=== PATIENT | female | born 1955 | race Caucasian/White ===

== ENCOUNTER → 2018-04-28 11:22 | Outpatient (CLI) | payer OTHER, SELFPAY ==
[2018-04-28 12:37] LABS: Add Manual Diff / Slide Review NO; Basophils Percent Auto 0.5 % (0-2); Eosinophils Percent Auto 1.4 % (2-4); Hemoglobin 16.3 g/dL (12.0-16.0); Lymphocytes Percent Auto 29.9 % (25-40); Mean Corpuscular HGB Conc 35.5 % (30-36); Mean Corpuscular Volume 87.3 fL (80-100); Monocytes Percent Auto 9.8 % (3-14); Neutrophils Absolute Auto 4600 /uL (3000-5900); Neutrophils Percent Auto 58.4 % (50-75); Platelet Count 221 X10^3/uL (150-400); Red Blood Cell Count 5.27 X10^6/uL (4.0-5.2); Red Cell Distribution Width 12.3 % (11.6-14.8); White Blood Cell Count 7.9 X10^3/uL (4.5-11.0)
[2018-04-28 12:58] LABS: Erythrocyte Sedimentation Rate 5 MM/HR (0-20)
[2018-04-28 13:18] LABS: Alanine Aminotransferase 28 IU/L (9-52); Albumin 4.6 g/dL (3.5-5.0); Albumin Globulin Ratio 1.5 (1.0-2.8); Alkaline Phosphatase 68 U/L (38-126); Aspartate Aminotransferase 28 IU/L (14-36); BUN Creatinine Ratio 28.6 (6-22); Bilirubin Total 0.5 mg/dL (0.2-1.3); Blood Urea Nitrogen 20 mg/dL (7-17); C-Reactive Protein Quant 0.5 mg/dL (<1.0); Calcium 9.9 mg/dL (8.4-10.2); Carbon Dioxide 28 mmol/L (22-32); Chloride 101 mmol/L (98-107); Estimated Glomerular Filt Rate > 60.0 mL/min (>60); Globulin 3.1 g/dL (1.7-4.1); Glucose 75 mg/dL (80-110); HEMOLYSIS < 15 (0-50); Potassium 4.1 mmol/L (3.4-5.1); Sodium 142 mmol/L (137-145); Total Protein 7.7 g/dL (6.3-8.2)
[2018-04-28 13:25] LABS: Rheumatoid Factor < 8.6 IU/mL (<12.0)
[2018-04-30 12:13] LABS: CCP Antibody (IgG) < 16 Units (< 20)
[2018-05-03 08:23] LABS: ANA Pattern >=1:1280 titer; ANA Screen POSITIVE (Negative); ANA Titer HOMOGENEOUS; DNA Antibody Crithidia IFA NEGATIVE (Negative); Rheumatoid Factor <14 IU/mL; Sjogren Antiboday SS-A <1.0 NEG AI (<1.0 NEGATIVE); Sjogren Antiboday SS-B <1.0 NEG AI (<1.0 NEGATIVE); Sm Antibody <1.0 NEG AI (<1.0 NEGATIVE); Sm/RNP Antibody <1.0 NEG AI (<1.0 NEGATIVE)
== END ==
PROVIDERS: PCP Family Medicine; Visit Provider Family Medicine
DX: M79.1 Myalgia (principal); I10 Essential (primary) hypertension
CPT/HCPCS: 36415; 80053; 83516; 85025; 85651; 86038; 86140; 86430

== ENCOUNTER → 2018-05-03 14:48 | Outpatient (CLI) | payer OTHER, SELFPAY | PROVIDERS: PCP Family Medicine; Visit Provider Family Medicine | DX: Z78.0 Asymptomatic menopausal state (principal); Z82.62 Family history of osteoporosis | CPT/HCPCS: 77080 ==

== ENCOUNTER → 2018-11-18 14:06 | Outpatient (CLI) | payer OTHER, SELFPAY | PROVIDERS: PCP Family Medicine; Visit Provider Surgery | DX: L02.411 Cutaneous abscess of right axilla (principal) | CPT/HCPCS: 87070; 87077; 87186; 87205 ==

== ENCOUNTER → 2018-11-29 15:25 | Outpatient (CLI) | payer OTHER, SELFPAY ==
[2018-11-29 17:20] LABS: Add Manual Diff / Slide Review NO; Basophils Absolute Auto 0 /uL (0-100); Basophils Percent Auto 0.5 % (0-2); Eosinophils Absolute Auto 200 /uL (0-450); Eosinophils Percent Auto 2.1 % (2-4); Hematocrit 45.3 % (36-46); Hemoglobin 15.8 g/dL (12.0-16.0); Lymphocytes Absolute Auto 2700 /uL (1100-4500); Lymphocytes Percent Auto 31.5 % (25-40); Mean Corpuscular HGB Conc 34.8 % (30-36); Mean Corpuscular Hemoglobin 30.4 PG (26-34); Mean Corpuscular Volume 87.5 fL (80-100); Monocytes Absolute Auto 700 /uL (0-900); Monocytes Percent Auto 8.3 % (3-14); Neutrophils Absolute Auto 5000 /uL (1500-7000); Neutrophils Percent Auto 57.6 % (50-75); Platelet Count 223 X10^3/uL (150-400); Red Blood Cell Count 5.17 X10^6/uL (4.0-5.2); Red Cell Distribution Width 12.6 % (11.6-14.8); White Blood Cell Count 8.7 X10^3/uL (4.5-11.0)
[2018-11-29 20:36] LABS: Alanine Aminotransferase 25 IU/L (9-52); Albumin 4.3 g/dL (3.5-5.0); Albumin Globulin Ratio 1.4 (1.0-2.8); Alkaline Phosphatase 77 U/L (38-126); Aspartate Aminotransferase 23 IU/L (14-36); BUN Creatinine Ratio 22.9 (6-22); Bilirubin Total 0.1 mg/dL (0.2-1.3); Blood Urea Nitrogen 16 mg/dL (7-17); Calcium 9.5 mg/dL (8.4-10.2); Carbon Dioxide 26 mmol/L (22-32); Chloride 101 mmol/L (98-107); Cholesterol 184 mg/dL (140-199); Estimated Glomerular Filt Rate > 60.0 mL/min (>60); Glucose 94 mg/dL (80-110); HDL Cholesterol 27 mg/dL (40-60); HEMOLYSIS < 15 (0-50); LDL Cholesterol Calculated 97 mg/dL (<100); Potassium 4.3 mmol/L (3.4-5.1); Sodium 137 mmol/L (137-145); Total Protein 7.3 g/dL (6.3-8.2); Triglycerides 301 mg/dL (35-150)
== END ==
PROVIDERS: PCP Family Medicine; Visit Provider Family Medicine
DX: I10 Essential (primary) hypertension (principal)
CPT/HCPCS: 36415; 80053; 80061; 85025

== ENCOUNTER → 2019-02-24 15:13 | Outpatient (CLI) | payer OTHER, SELFPAY ==
--- NOTE | 2019-03-03 16:27 | PM.PFT.1 ---
Pulmonary Function Test Referral & Results Date Patient Seen: 02/24/19 Requesting provider: Nica Wiggins Results: The spirometry demonstrates an FVC of 2.79 L which is 96% of predicted. The FEV1 was measured at 2.20 L which is 98% of predicted. The FEV1/FVC ratio was 79 which is 100 to% of predicted. Following the administration of bronchodilator there was no appreciable change. Lung volumes show an SVC of 2.76 L which is 100% of predicted. The diffusing capacity was measured at 24.25 which is 112% of predicted. The maximum voluntary ventilation was normal Interpretation: This study demonstrates normal pulmonary function
== END ==
PROVIDERS: PCP Family Medicine; Visit Provider Family Medicine
DX: R06.02 Shortness of breath (principal)
CPT/HCPCS: 94060; 94726; 94729

== ENCOUNTER → 2019-07-10 09:58 | Outpatient (CLI) | payer OTHER, SELFPAY ==
--- NOTE | 2019-07-10 10:01 | DI.US.S_ITS ---
PROCEDURE: US ABDOMEN LIMITED INDICATIONS: Hepatic Mass TECHNIQUE: Real-time focused scanning was performed of the abdomen, with image documentation. COMPARISON: None. FINDINGS: Liver is normal appearance and no hepatic mass is seen sonographically. IMPRESSION: No hepatic mass seen sonographically. Dictated by: Jed GAFFNEY Interpreted: Gaurav Maxwell MD on 07/10/2019 at 13:53 Approved by: Gaurav Maxwell M.D. on 07/11/2019 at 9:11
== END ==
PROVIDERS: PCP Family Medicine; Visit Provider Family Medicine
DX: R16.0 Hepatomegaly, not elsewhere classified (principal)
CPT/HCPCS: 76705

== ENCOUNTER → 2019-11-22 14:38 | Outpatient (CLI) | payer OTHER, SELFPAY ==
[2019-11-22 15:55] LABS: Add Manual Diff / Slide Review NO; Alanine Aminotransferase 25 IU/L (<35); Albumin 4.4 g/dL (3.5-5.0); Albumin Globulin Ratio 1.3 (1.0-2.8); Alkaline Phosphatase 65 U/L (38-126); Aspartate Aminotransferase 30 IU/L (14-36); BUN Creatinine Ratio 26.1 (6-22); Basophils Absolute Auto 0 /uL (0-100); Basophils Percent Auto 0.6 % (0-2); Bilirubin Total 0.3 mg/dL (0.2-1.3); Blood Urea Nitrogen 18 mg/dL (7-17); C-Reactive Protein Quant < 0.5 mg/dL (<1.0); Calcium 9.2 mg/dL (8.4-10.2); Carbon Dioxide 28 mmol/L (22-32); Chloride 101 mmol/L (98-107); Cholesterol 212 mg/dL (140-199); Eosinophils Absolute Auto 100 /uL (0-450); Eosinophils Percent Auto 1.6 % (2-4); Estimated Glomerular Filt Rate > 60.0 mL/min (>60); Globulin 3.3 g/dL (1.7-4.1); Glucose 88 mg/dL (80-110); HDL Cholesterol 29 mg/dL (40-60); HEMOLYSIS < 15 (0-50); Hematocrit 43.8 % (36-46); Hemoglobin 15.5 g/dL (12.0-16.0); LDL Cholesterol Calculated 134 mg/dL (<100); Lymphocytes Absolute Auto 2500 /uL (1100-4500); Mean Corpuscular HGB Conc 35.5 % (30-36); Mean Corpuscular Hemoglobin 31.3 PG (26-34); Mean Corpuscular Volume 88.3 fL (80-100); Monocytes Absolute Auto 700 /uL (0-900); Neutrophils Absolute Auto 4000 /uL (1500-7000); Neutrophils Percent Auto 53.8 % (50-75); Platelet Count 197 X10^3/uL (150-400); Potassium 3.8 mmol/L (3.4-5.1); Red Blood Cell Count 4.96 X10^6/uL (4.0-5.2); Red Cell Distribution Width 12.6 % (11.6-14.8); Sodium 137 mmol/L (137-145); Total Protein 7.7 g/dL (6.3-8.2); Triglycerides 243 mg/dL (35-150); White Blood Cell Count 7.4 X10^3/uL (4.5-11.0)
[2019-11-22 16:20] LABS: Erythrocyte Sedimentation Rate 5 MM/HR (0-20)
[2019-11-24 13:36] LABS: ANA Screen, IFA Positive (.)
== END ==
PROVIDERS: PCP Family Medicine; Referring Provider Family Medicine; Visit Provider Family Medicine
DX: E78.5 Hyperlipidemia, unspecified (principal); I10 Essential (primary) hypertension; D58.2 Other hemoglobinopathies; I49.9 Cardiac arrhythmia, unspecified; R76.8 Other specified abnormal immunological findings in serum
CPT/HCPCS: 36415; 80053; 80061; 84443; 85025; 85651; 86038; 86140

== ENCOUNTER → 2020-03-06 09:14 | Outpatient (CLI) | payer OTHER, SELFPAY ==
[2020-03-06 09:43] LABS: Alanine Aminotransferase 26 IU/L (<35); Albumin 4.6 g/dL (3.5-5.0); Albumin Globulin Ratio 1.5 (1.0-2.8); Alkaline Phosphatase 65 U/L (38-126); Aspartate Aminotransferase 30 IU/L (14-36); BUN Creatinine Ratio 23.2 (6-22); Bilirubin Total 0.5 mg/dL (0.2-1.3); Blood Urea Nitrogen 16 mg/dL (7-17); Calcium 9.6 mg/dL (8.4-10.2); Carbon Dioxide 30 mmol/L (22-32); Chloride 102 mmol/L (98-107); Estimated Glomerular Filt Rate > 60.0 mL/min (>60); Globulin 3.1 g/dL (1.7-4.1); Glucose 104 mg/dL (80-110); HEMOLYSIS < 15 (0-50); Potassium 4.1 mmol/L (3.4-5.1); Sodium 139 mmol/L (137-145); Total Protein 7.7 g/dL (6.3-8.2)
[2020-03-06 09:53] LABS: Add Manual Diff / Slide Review NO; Basophils Absolute Auto 100 /uL (0-100); Basophils Percent Auto 0.9 % (0-2); Eosinophils Absolute Auto 100 /uL (0-450); Eosinophils Percent Auto 1.2 % (2-4); Hematocrit 47.1 % (36-46); Hemoglobin 16.2 g/dL (12.0-16.0); Lymphocytes Absolute Auto 2200 /uL (1100-4500); Lymphocytes Percent Auto 30.3 % (25-40); Mean Corpuscular HGB Conc 34.5 % (30-36); Mean Corpuscular Hemoglobin 30.3 PG (26-34); Mean Corpuscular Volume 87.8 fL (80-100); Monocytes Absolute Auto 600 /uL (0-900); Monocytes Percent Auto 8.3 % (3-14); Neutrophils Absolute Auto 4400 /uL (1500-7000); Neutrophils Percent Auto 59.3 % (50-75); Platelet Count 240 X10^3/uL (150-400); Red Blood Cell Count 5.37 X10^6/uL (4.0-5.2); Red Cell Distribution Width 12.5 % (11.6-14.8); White Blood Cell Count 7.4 X10^3/uL (4.5-11.0)
[2020-03-06 10:40] LABS: C-Reactive Protein Quant 0.5 mg/dL (<1.0); Lipase 104 U/L (23-300)
[2020-03-06 16:07] LABS: Cancer Antigen 125 10.7 U/mL (0-35)
== END ==
PROVIDERS: PCP Family Medicine; Referring Provider Family Medicine; Visit Provider Family Medicine
DX: K57.92 Diverticulitis of intestine, part unspecified, without perforation or abscess without bleeding (principal); N39.0 Urinary tract infection, site not specified; N83.8 Other noninflammatory disorders of ovary, fallopian tube and broad ligament
CPT/HCPCS: 36415; 80053; 83690; 85025; 86140; 86304; 87086

== ENCOUNTER → 2020-03-06 12:25 | Outpatient (CLI) | payer OTHER, SELFPAY ==
--- NOTE | 2020-03-06 12:27 | DI.CT.S_ITS ---
PROCEDURE: CT ABDOMEN PELVIS W CON INDICATIONS: Abdominal pain for 1 month TECHNIQUE: After the administration of oral and intravenous contrast, 5 mm thick sections acquired from the diaphragms to the symphysis. 5 mm thick coronal and sagittal reformats were performed. For radiation dose reduction, the following was used: automated exposure control, adjustment of mA and/or kV according to patient size. COMPARISON: None. FINDINGS: Image quality: Excellent. ABDOMEN: Lung bases: Lung bases are clear. Heart size is normal. Solid organs: Liver is normal in size and enhancement. Gallbladder is unremarkable . Biliary system is non-dilated. Pancreas enhances normally. Spleen is normal in size and enhancement. No adrenal nodules. Kidneys are normal in size and enhancement, without hydronephrosis. Peritoneum and bowel: Stomach, small bowel, and colon loops are normal in caliber and wall thickness. No free fluid or air. Extensive sigmoid diverticulosis without evidence of diverticulitis. Diffuse colonic diverticulosis. Nodes and vessels: No retroperitoneal or mesenteric adenopathy. Aorta and inferior vena cava are normal in caliber. Miscellaneous: No ventral hernias. PELVIS: Genitourinary: Bladder wall thickness is normal. Miscellaneous: No inguinal hernias or adenopathy. Remote hysterectomy. 5.1 x 5.0 cm low-density right adnexal lesion measuring 38 Hounsfield units in density. This finding is suspicious for a potential cystic neoplasm of the right ovary. Bones: No suspicious bony lesions. No vertebral body compression fractures. IMPRESSION: 1. Remote hysterectomy. 2. There is a 5.1 cm maximum diameter lesion of the right adnexa. The density is greater than that of water. Findings may represent a benign cystic lesion with hemorrhage or potentially a cystic neoplasm of the right ovary. Recommend gynecological consultation. 3. Diverticulosis without evidence of diverticulitis. Dictated by: Don Casillas M.D. on 03/06/2020 at 14:22 Approved by: Don Casillas M.D. on 03/06/2020 at 14:28
== END ==
PROVIDERS: PCP Family Medicine; Referring Provider Family Medicine; Visit Provider Family Medicine
DX: R10.9 Unspecified abdominal pain (principal); K57.30 Diverticulosis of large intestine without perforation or abscess without bleeding; N39.0 Urinary tract infection, site not specified; N83.8 Other noninflammatory disorders of ovary, fallopian tube and broad ligament; R19.09 Other intra-abdominal and pelvic swelling, mass and lump; Z90.710 Acquired absence of both cervix and uterus
CPT/HCPCS: 36415; 74177; 80053; 83690; 85025; 86140; 86304; 87086; Q9967

== ENCOUNTER → 2020-03-22 13:45 | Outpatient (CLI) | payer OTHER, SELFPAY ==
[2020-03-23 08:51] LABS: COVID19 Sendout Not Detected (Not Detect)
== END ==
PROVIDERS: PCP Family Medicine; Visit Provider Physician Assistant
DX: Z11.59 Encounter for screening for other viral diseases (principal)
CPT/HCPCS: 87635

== ENCOUNTER 2020-03-25 08:26 | Day surgery (SDC) | payer OTHER, SELFPAY ==
[2020-03-19 15:09] VITALS: BMI 36.6
[2020-03-25 09:00] VITALS: BP 142/79; PULSE 77; RESP 16; TEMP 36.1; O2SAT 96; BMI 36.1
[2020-03-25] MEDS: LACTATED RINGERS 1,000 ML 42 ML IV (09:17)
--- NOTE | 2020-03-25 10:14 | PM.PREOP ---
Pre-operative Note COVID-19 COVID-19 status: Negative Result date/Date tested (Pos, Neg/Pending): 03/22/20 Interval Note History & Physical reviewed/Exam performed by Physician: Yes Changes to H&P: No H&P completed within 30 days and has changed as indicated here:: 03/25/20
--- NOTE | 2020-03-25 10:57 | SUR.PREOP ---
PT DISCHARGED TO HOME IN STABLE CONDITION, VSS. PT SURGERY HAS BEEN CANCELLED AND RESCHEDULED FOR THIS COMING WEDNESDAY. PT RE SCHEDULED FOR COVID TESTING TO BE DONE TOMORROW. PT AMBULATED OUT OF FACILITY WITHOUT ANY DIFFICULTLY. PT DISCHARGED TO HOME WITH PT SISTER.
== END 2020-03-25 08:30 | disposition home or self-care (01) ==
LOC: OR 08:28
PROVIDERS: PCP Family Medicine; Referring Provider Obstetrics & Gynecology; Visit Provider Obstetrics & Gynecology
PROC: (CPT 58661; principal; 2020-03-25 09:45)
DX: Z53.9 Procedure and treatment not carried out, unspecified reason (principal)
CPT/HCPCS: 58661; J0330; J1100; J2405; J2704; J3010

== ENCOUNTER → 2020-03-27 11:53 | Outpatient (CLI) | payer OTHER, SELFPAY ==
[2020-03-28 06:28] LABS: COVID19 Sendout Not Detected (Not Detect)
== END ==
PROVIDERS: PCP Family Medicine; Visit Provider Nurse Practitioner
DX: Z11.59 Encounter for screening for other viral diseases (principal)
CPT/HCPCS: 87635

== ENCOUNTER 2020-03-29 10:38 | Day surgery (SDC) | payer OTHER, SELFPAY ==
[2020-03-25 12:23] VITALS: BMI 36.6
[2020-03-29] VITALS (9 sets, daily range): BP systolic 128–186; BP diastolic 66–96; PULSE 64–77; RESP 11–18; TEMP 36.2–36.8; O2SAT 89–99; BMI 36.1
--- NOTE | 2020-03-29 | PATH_ITS ---
[facility] Accession Number: [id number] . 01 Material submitted: . fallopian tube - RIGHT FALLOPIAN TUBE AND OVARY . 01 Clinical history: . PELVIC . 01 Diagnosis: Right Fallopian Tube and Ovary, Salpingo-oophorectomy: Papillary serous cystadenofibroma of ovary. Fallopian tube with benign paratubal cysts and incidental adrenal cortical rest. Negative for significant atypia and malignancy. MRV 04/03/2020 1859 Local . 01 Comment: Areas of the ovarian cyst exhibit collections of hemosiderin-laden macrophages within the wall. The epithelium associated with these foci shows cytologic atypia, compatible with reactive changes. Significant epithelial tufting or complex papillae are not seen. An endometrioid component is not identified. . 01 Electronically signed: . Ana Luisa Gautam MD, Pathologist NPI- [id number] . 01 Gross description: . Received in formalin, labeled with the patient's name, MRN and right fallopian tube and ovary, is a salpingo-oophorectomy specimen consisting of a 4.0 cm in length by 0.7 cm in diameter fimbriated fallopian tube and a 24 gram, 5.0 x 4.8 x 3.0 cm partially solid and partially cystic ovary. The external surface of the fallopian tube is purple-pink with multiple paratubal cysts ranging in size from 0.1 cm to 0.4 cm in greatest dimension. The fallopian tube is serially sectioned to reveal a white-oviedo cut surface with a stellate lumen. The external surface of the ovary is pink-oviedo and smooth. The solid portion of the ovary is sectioned to reveal a oviedo-white smooth cut surface with a 1.6 cm smooth lined cyst. The cystic portion of the ovary measures 5.0 cm and has a yellow-oviedo gelatinous material. The cyst lining is 60% pink-oviedo and smooth and 40% oviedo-white with possible papillary excrescences. The cyst wall measures up to 0.3 cm. Blood Bank Laboratory Technician sections are submitted as follows: . A1: congressional representative section of solid portion of ovary with smaller cyst. A2: congressional representative sections of cystic portion of ovary in relationship to solid portion of ovary (with papillary excrescences). A3-A4: congressional representative sections of cyst wall with papillary excrescences. A5: entirely serially sectioned fimbriated end of fallopian tube. A6: congressional representative sections of fallopian tube. (SD/[id number]) . After initial microscopic review, additional congressional representative sections are submitted as follows: . A7-A9: solid portion of ovary in relationship to smaller cyst. A10-A11: solid portion of ovary in relationship to larger cyst with papillary excrescences. A12-A14: additional congressional representative sections of larger cysts with papillary excrescences. ([id number]) /MRV 04/03/2020 1441 Local . 01 Pathologist provided ICD-10: D27.0 . 01 CPT . 240545 Performed at: 01 [facility] [address] [place] [address] [address] [facility], [place], [place] [id number] MD Imer Pearl MD Phone: [phone]
[2020-03-29] MEDS: ACETAMINOPHEN 325 MG TABLET 975 MG PO (11:02)
[2020-03-29] MEDS: LACTATED RINGERS 1,000 ML 42 ML IV (11:04)
--- NOTE | 2020-03-29 12:26 | PM.PREOP ---
Pre-operative Note COVID-19 COVID-19 status: Negative Result date/Date tested (Pos, Neg/Pending): 03/26/20 Interval Note History & Physical reviewed/Exam performed by Physician: Yes Changes to H&P: No H&P completed within 30 days and has changed as indicated here:: 03/29/20
--- NOTE | 2020-03-29 12:34 | PM.HP.1 ---
History of Present Illness History of Present Illness Date Patient Seen: 03/29/20 Time Patient Seen: 12:35 Chief complaint: PELVIC Narrative: Patient is a 64-year-old 5 para 2031 with a right ovarian mass Patient is status post hysterectomy and removal of left tube and ovary. Patient History Medical History (Updated 03/19/20 @ 15:16 by Anne Zuniga RN) Asthma (Chronic ~2007) Chicken pox (Resolved) Chronic back pain (Chronic ~2016) Depression (Acute) Diverticular disease (Chronic ~2017) Diverticulosis of colon (Chronic) Fibroids (Chronic) Fibromyalgia (Acute) Glaucoma (Chronic ~2017) Hearing loss (Chronic) Internal hemorrhoids (Chronic) Knee problem (Chronic ~2016) Measles (Resolved) Migraines (Chronic ~1987) MRSA (methicillin resistant Staphylococcus aureus) (Acute) Mumps (Resolved) Obesity (BMI 30-39.9) (Acute) Polyp of colon (Resolved) PTSD (post-traumatic stress disorder) (Acute) Rubella (Resolved) Vision disorder (Chronic) Surgical History (Updated 03/19/20 @ 15:13 by Anne Zuniga RN) Anesthesia (Resolved) History of blepharoplasty (Resolved ~2015) History of carpal tunnel repair (~2010) History of left salpingo-oophorectomy (Acute) History of tonsillectomy (Resolved) Status post hysterectomy (~2000) [place] teeth extracted (Acute) Family & Social History Family History Father Lung cancer Mother Atrial fibrillation Stroke Sister Lung cancer Sister Osteoporosis Bowel disease Grandfather Stroke Heart disease Grandmother Stroke Grandfather No problems noted. Social History: household members spouse Tobacco & Substance use: Smoking Status Never smoker alcohol intake current alcohol intake frequency holiday/special occasion Substance Use Type does not use Meds Home Medications and Allergies Home Medications Medication Instructions Recorded Confirmed Type calcium carb-vit D3-magnesium 250 1 cap PO DAILY cap 04/28/18 03/25/20 History mg-200 unit-125 mg capsule Massage Therapy #1 ea 06/19/19 03/07/20 Rx estradiol 0.0375 mg/24 hr 1 patch TOPICAL 2XW #24 patch 07/06/19 03/25/20 Rx semiweekly transdermal patch albuterol sulfate 90 mcg/actuation 2 puff INHALATION Q4-6H PRN #1 10/24/19 03/25/20 Rx aerosol inhaler inhalation hydrochlorothiazide 25 mg tablet 25 mg PO QDAY #90 tab 11/29/19 03/25/20 Rx CBD oil PO PRN 03/07/20 03/07/20 History Allergies Allergy/AdvReac Type Severity Reaction Status Date / Time Penicillins [PENICILLINS] Allergy Unknown to young, Verified 03/29/20 11:02 doesn't remember doxycycline AdvReac Intermediate partial Verified 03/29/20 11:02 paralysis, Numbness, joint/muscle pain erythromycin base AdvReac Intermediate Vomiting Verified 03/27/20 11:44 adhesive AdvReac Mild Red, burn Verified 03/29/20 11:02 latex AdvReac Mild Unsure, Verified 03/29/20 11:02 poss irritation Exam Vital Signs (past 8 hours): - 03/29/20 11:05 Temperature 98.2 F Pulse Rate 77 Respiratory Rate 16 Blood Pressure 136/84 Pulse Oximetry 96 Oxygen Delivery Method Room Air Narrative Exam Narrative: HEENT: No thyromegaly, no anterior cervical or supraclavicular lymphadenopathy. Lungs:Clear to auscultation bilaterally, no wheezes. Cardiovascular: Regular rate and rhythm, no murmurs, rubs, or gallops. Abdomen: Well-healed Pfannenstiel scars. No hepatosplenomegaly. No masses palpable. External genitalia: Normal Vagina: Atrophic Cervix: Absent Bimanual exam: No uterus. Right adnexal fullness and midline Rectal: No masses. Assessment & Plan Assessment & Plan narrative: Assessment: 64-year-old 5 para 2031 with a right ovarian mass Plan: Laparoscopic removal of right tube and ovary The risks, benefits, and alternatives to the procedure were explained to the patient. The risks including bleeding, infection, injury to the bowel, bladder, or ureters. She also understands that there is possibility of an open procedure. A full par Q was held and consent form was signed. COVID-19 COVID-19 status: Negative Result date/Date tested (Pos, Neg/Pending): 03/26/20 Time Spent With Patient Time with patient: 15-24 minutes
--- NOTE | 2020-03-29 12:46 | SUR.OPER ---
Lithotomy on padded OR bed, head on pillow, arms secured on padded arm boards at <90 degrees abduction. Legs secured in padded yellow fins stirrups.
[2020-03-29] MEDS: BUPIVACAINE 0.5% W/ EPI (PF) 30 ML VIAL INJ (13:04)
[2020-03-29] MEDS: LACTATED RINGERS 1,000 ML 120 ML IV (14:06)
[2020-03-29] MEDS: OXYCODONE/ACETAMINOPHEN 5/325 TABLET 1 TAB PO (14:51)
[2020-03-29] MEDS: OXYCODONE IR 5 MG TABLET PO (15:23)
--- NOTE | 2020-03-29 15:40 | SUR.PHASEII ---
Medicated with 2nd pain med- see emar, son called and updated, dressings to abdomen c/d/i. murali pad as well. abdomen distended but soft, pt belching.
--- NOTE | 2020-03-29 17:29 | PM.GYNOP.1 ---
Operative Date/Time/Diagnoses Date of procedure: 03/29/20 Time of procedure: 13:30 Pre-op diagnosis: Right ovarian cyst Post-op diagnosis: same Procedure & Clinicians Procedure: Procedures Operation Date: 03/29/20 12:15 Actual Procedures Side Surgeon p Laparoscopic Salpingo-oophorectomy, lysis of omental adhesions Right Loren Mccloud MD Indications: Right ovarian mass Surgeon: Loren Mccloud Anesthesia Type: General Operative Notes Findings: Uterus previously removed 8 cm right ovarian cyst Omental to anterior abdominal wall adhesions Normal Liver and Gallbladder Normal appendix Closure Type: primary Specimen(s): right tube & ovary Estimated blood loss (mL): 10 Blood products transfused: none Procedure in detail: After informed consent was obtained, the patient was taken to the operating room where she was placed in the dorsal supine position. After adequate general endotracheal anesthesia was achieved, she was placed in the dorsal lithotomy position, and prepped and draped in the usual sterile fashion. A time-out was performed. A moistened sponge stick was placed into the vagina. Attention was then turned to the abdomen where 6 cc of 0.25% Marcaine with epinephrine were injected in the umbilical fold. A 5 mm incision was made. The Veress needle was placed into the peritoneal cavity, and its placement confirmed by aspiration and drop test. The abdominal cavity was insufflated with 4 L of CO2. The Veress needle was removed, and a 5 mm trocar was placed without difficulty. Two other 5 mm incisions were placed 4 cm lateral to the midline at the level of the umbilicus, after 6 cc of 0.25% Marcaine with epinephrine were injected. Two 5 mm trocars were placed under direct visualization. Omental to anterior abdominal wall adhesions were seen no bowel was involved. Using the PlasmaKinetic was settings at 40 w, the omentum was cauterized and cut to take down the adhesions. The right ovary was visualized and was found to have an 8 cm cyst. The tube was normal. The tube was grasped with an atraumatic grasper. Using the PlasmaKinetic with settings at 40 w, the infundibulopelvic ligament on the right side was cauterized and cut down to the broad ligament and across the broad ligament. Hemostasis was achieved. 6 cc of 0.25% Marcaine were injected through the previous Pfannenstiel incision in the midline. A 2 cm incision was made. A 12 mm trocar was placed under direct visualization. The small endobag was placed through the suprapubic trocar. The right tube and ovary were placed into the bag. The trocar was removed. The bag was brought up through the suprapubic incision. The fascial incision was extended with Dunlap scissors. The bag was opened, and the ovary was incised with a knife decompressing the ovary allowing the bag to come up through the incision. There was no spillage of any ovarian fluid into the incision. The pelvis was examined and there was a small amount of bleeding noted from the omentum that had previously been incised. This was cauterized for hemostasis with care to avoid the bowel. The pelvis was copiously irrigated with warm normal saline. The fluid was suctioned. There was no bleeding noted. The liver and gallbladder were examined and were found to be normal. The appendix was normal. The left ovary and tube had previously been removed. The uterus had been removed. The instruments were removed from the abdomen. The CO2 was allowed to escape. The trocars were removed. The suprapubic incision was closed on the fascia with 0 Vicryl. The subcutaneous layer was irrigated with warm normal saline. Two simple interrupted sutures with 2 0 Vicryl were placed to reapproximate the subcutaneous layer. All of the incisions were closed with 4 0 Biosyn in a subcuticular fashion. Steri-Strips, 2 x 2, and op site were placed. The sponge stick was removed from the vagina. Sponge, lap, and instrument counts were correct x2. The patient tolerated the procedure well, and was taken to PACU in stable condition. Complications: none Post-operative Condition: stable Disposition: PACU Plan for aftercare: Home after Recovery
== END 2020-03-29 16:00 | disposition home or self-care (01) ==
PROVIDERS: PCP Family Medicine; Referring Provider Family Medicine; Visit Provider Obstetrics & Gynecology
PROC: (CPT 58661; principal; 2020-03-29 12:15)
DX: D27.0 Benign neoplasm of right ovary (principal); K66.0 Peritoneal adhesions (postprocedural) (postinfection); E66.9 Obesity, unspecified; Z68.36 Body mass index [BMI] 36.0-36.9, adult; I10 Essential (primary) hypertension; F32.9 Major depressive disorder, single episode, unspecified; M79.7 Fibromyalgia
CPT/HCPCS: 58661; J1100; J1885; J2250; J2405; J2704; J3010

== ENCOUNTER → 2020-11-16 11:16 | Outpatient (CLI) | payer OTHER, SELFPAY ==
[2020-11-16 12:08] LABS: BUN Creatinine Ratio 31.1 (6-22); Blood Urea Nitrogen 19 mg/dL (7-17); Calcium 9.9 mg/dL (8.4-10.2); Carbon Dioxide 25 mmol/L (22-32); Chloride 104 mmol/L (98-107); Estimated Glomerular Filt Rate > 60.0 mL/min (>60); Glucose 106 mg/dL (80-110); HEMOLYSIS < 15 (0-50); Potassium 4.4 mmol/L (3.4-5.1); Sodium 138 mmol/L (137-145)
== END ==
PROVIDERS: PCP Family Medicine; Referring Provider Family Medicine; Visit Provider Family Medicine
DX: I10 Essential (primary) hypertension (principal)
CPT/HCPCS: 36415; 80048

== ENCOUNTER → 2021-06-20 11:09 | Outpatient (CLI) | payer MEDICARE, OTHER, SELFPAY ==
[2021-06-20 12:29] LABS: Alanine Aminotransferase 31 IU/L (<35); Albumin 4.6 g/dL (3.5-5.0); Albumin Globulin Ratio 1.5 (1.0-2.8); Alkaline Phosphatase 55 U/L (38-126); Aspartate Aminotransferase 39 IU/L (14-36); BUN Creatinine Ratio 27.1 (6-22); Bilirubin Total 0.6 mg/dL (0.2-1.3); Blood Urea Nitrogen 19 mg/dL (7-17); Calcium 9.1 mg/dL (8.4-10.2); Carbon Dioxide 28 mmol/L (22-32); Chloride 102 mmol/L (98-107); Cholesterol 226 mg/dL (140-199); Estimated Glomerular Filt Rate > 60.0 mL/min (>60); Globulin 3.1 g/dL (1.7-4.1); Glucose 87 mg/dL (80-110); HDL Cholesterol 30 mg/dL (40-60); HEMOLYSIS 37 (0-50); LDL Cholesterol Calculated 155 mg/dL (<100); Potassium 4.3 mmol/L (3.4-5.1); Sodium 138 mmol/L (137-145); Total Protein 7.7 g/dL (6.3-8.2); Triglycerides 203 mg/dL (35-150)
[2021-06-20 16:42] LABS: Creatinine Urine Random 203.6 mg/dL
[2021-06-20 16:43] LABS: Microalbumi Creatinin Ratio Ur 5.8 ug/mg CR (<30); Microalbumin Urine Random 1.2 mg/dL (0-1.6)
== END ==
PROVIDERS: PCP Family Medicine; Referring Provider Family Medicine; Visit Provider Family Medicine
DX: I10 Essential (primary) hypertension (principal); E78.5 Hyperlipidemia, unspecified
CPT/HCPCS: 36415; 80053; 80061; 82043; 82570

== ENCOUNTER → 2021-11-17 14:11 | Outpatient (CLI) | payer MEDICARE, OTHER, SELFPAY ==
[2021-11-17 14:51] LABS: Add Manual Diff / Slide Review NO; Basophils Absolute Auto 100 /uL (0-100); Eosinophils Absolute Auto 200 /uL (0-450); Eosinophils Percent Auto 1.9 % (2-4); Hematocrit 45.1 % (36-46); Hemoglobin 15.9 g/dL (12.0-16.0); Lymphocytes Absolute Auto 2600 /uL (1100-4500); Lymphocytes Percent Auto 29.1 % (25-40); Mean Corpuscular HGB Conc 35.3 % (30-36); Mean Corpuscular Hemoglobin 30.7 PG (26-34); Monocytes Absolute Auto 800 /uL (0-900); Monocytes Percent Auto 8.9 % (3-14); Neutrophils Absolute Auto 5300 /uL (1500-7000); Neutrophils Percent Auto 59.1 % (50-75); Platelet Count 219 X10^3/uL (150-400); Red Blood Cell Count 5.19 X10^6/uL (4.0-5.2); Red Cell Distribution Width 12.7 % (11.6-14.8)
[2021-11-17 15:20] LABS: Alanine Aminotransferase 23 IU/L (<35); Albumin 4.8 g/dL (3.5-5.0); Albumin Globulin Ratio 1.4 (1.0-2.8); Alkaline Phosphatase 56 U/L (38-126); Aspartate Aminotransferase 27 IU/L (14-36); Bilirubin Total 0.4 mg/dL (0.2-1.3); Blood Urea Nitrogen 19 mg/dL (7-17); Calcium 9.6 mg/dL (8.4-10.2); Carbon Dioxide 33 mmol/L (22-32); Chloride 98 mmol/L (98-107); Estimated Glomerular Filt Rate > 60 mL/min (>60); Globulin 3.5 g/dL (1.7-4.1); Glucose 90 mg/dL (80-110); HEMOLYSIS < 15 (0-50); Potassium 3.8 mmol/L (3.4-5.1); Sodium 139 mmol/L (137-145); Total Protein 8.3 g/dL (6.3-8.2)
== END ==
PROVIDERS: PCP Family Medicine; Referring Provider Family Medicine; Visit Provider Family Medicine
DX: Z01.818 Encounter for other preprocedural examination (principal)
CPT/HCPCS: 36415; 80053; 85025

== ENCOUNTER → 2022-07-24 12:18 | Outpatient (CLI) | payer MEDICARE, OTHER, SELFPAY ==
[2022-07-24 12:45] LABS: Creatinine Urine Random 184.5 mg/dL
[2022-07-24 12:49] LABS: Microalbumi Creatinin Ratio Ur 4.8 ug/mg CR (<30); Microalbumin Urine Random 0.9 mg/dL (0-1.6)
== END ==
PROVIDERS: PCP Family Medicine; Visit Provider Family Medicine
DX: E78.2 Mixed hyperlipidemia (principal); I10 Essential (primary) hypertension; R53.83 Other fatigue; R94.5 Abnormal results of liver function studies; Z79.899 Other long term (current) drug therapy
CPT/HCPCS: 82043; 82570

== ENCOUNTER 2022-08-04 08:20 | Day surgery (SDC) | payer MEDICARE, OTHER, SELFPAY ==
--- NOTE | 2022-08-04 | PATH_ITS ---
[facility] Accession Number: [id number] . 01 Material submitted: . colon - ASCENDING COLON . 01 Diagnosis: Ascending Colon, Biopsy: Tubular adenoma. SAMI 08/06/2022 1130 Local . 01 Electronically signed: . Georgette Pichardo MD, Pathologist NPI- [id number] . 01 Gross description: . ASCENDING COLON: Received in formalin are 3 fragment(s) of oviedo, soft tissue measuring 0.2 x 0.2 x 0.1 cm to 0.2 x 0.1 x 0.1 cm submitted entirely in 1 cassette(s) /CPE 08/05/2022 0853 Local . 01 Pathologist provided ICD-10: D12.2 . 01 CPT . 535995 Specimen Comment: A courtesy copy of this report has been sent to [phone] Performed at: 01 [facility] [address] [place] [address], [place], [place] [id number] MD Imer Pearl MD Phone: [phone]
[2022-08-04 09:01] LABS: Add Manual Diff / Slide Review NO; Basophils Absolute Auto 100 /uL (0-100); Basophils Percent Auto 0.8 % (0-2); Eosinophils Absolute Auto 100 /uL (0-450); Eosinophils Percent Auto 1.6 % (2-4); Hemoglobin 16.7 g/dL (12.0-16.0); Lymphocytes Absolute Auto 2400 /uL (1100-4500); Lymphocytes Percent Auto 25.5 % (25-40); Mean Corpuscular HGB Conc 34.7 % (30-36); Mean Corpuscular Hemoglobin 30.2 PG (26-34); Monocytes Absolute Auto 700 /uL (0-900); Monocytes Percent Auto 7.2 % (3-14); Neutrophils Absolute Auto 6100 /uL (1500-7000); Neutrophils Percent Auto 64.9 % (50-75); Platelet Count 228 X10^3/uL (150-400); Red Blood Cell Count 5.52 X10^6/uL (4.0-5.2); Red Cell Distribution Width 12.7 % (11.6-14.8); White Blood Cell Count 9.4 X10^3/uL (4.5-11.0)
[2022-08-04 09:29] VITALS: BP 126/80; PULSE 79; RESP 18; TEMP 36.4; O2SAT 96; BMI 34.9
[2022-08-04 09:29] LABS: Alanine Aminotransferase 29 IU/L (<35); Albumin 4.7 g/dL (3.5-5.0); Albumin Globulin Ratio 1.3 (1.0-2.8); Alkaline Phosphatase 59 U/L (38-126); Aspartate Aminotransferase 32 IU/L (14-36); BUN Creatinine Ratio 23.4 (6-22); Bilirubin Total 0.7 mg/dL (0.2-1.3); Blood Urea Nitrogen 15 mg/dL (7-17); Calcium 9.1 mg/dL (8.4-10.2); Carbon Dioxide 28 mmol/L (22-32); Chloride 100 mmol/L (98-107); Cholesterol 242 mg/dL (140-199); Estimated Glomerular Filt Rate > 60 mL/min (>60); Globulin 3.6 g/dL (1.7-4.1); Glucose 104 mg/dL (80-110); HDL Cholesterol 34 mg/dL (40-60); HEMOLYSIS < 15 (0-50); LDL Cholesterol Calculated 173 mg/dL (<100); Potassium 3.6 mmol/L (3.4-5.1); Sodium 137 mmol/L (137-145); Total Protein 8.3 g/dL (6.3-8.2); Triglycerides 176 mg/dL (35-150)
[2022-08-04 09:42] LABS: COVID19 -Nasal RAPID Negative (Negative)
[2022-08-04 09:42] LABS: Free T3, Triiodothyronine Free 3.82 pg/mL (2.77-5.27); Free T4, Direct Thyroxine 1.05 ng/dL (0.78-2.19)
[2022-08-04] MEDS: LACTATED RINGERS 1,000 ML 200 ML IV (09:49)
[2022-08-04 09:56] LABS: Thyroid Stimulating Hormone 2.03 uIU/mL (0.47-4.68)
--- NOTE | 2022-08-04 10:11 | PM.HP.1 ---
History of Present Illness History of Present Illness Date Patient Seen: 08/04/22 Time Patient Seen: 10:11 Chief complaint: SCREENING COLONOSCOPY/lab eo Narrative: The patient presents for colorectal screening. This is her 3rd colonoscopy last was performed 5 years ago at an outside institution. She thinks there were a few benign polyps removed. No personal or family history of colon cancer. On further history denies any recent gastrointestinal symptoms. No nausea, vomiting, abdominal pain, loss of appetite, unexplained weight loss, or change in bowel habits melena, hematochezia, or bright red blood per rectum. Patient History Medical History Asthma (~2007) Chicken pox Chronic back pain (~2016) Depression Diverticular disease (~2017) Diverticulosis of colon Fibroids Fibromyalgia Glaucoma (~2017) Hearing loss Hyperflexion injury Injury of sternum Internal hemorrhoids Knee problem (~2016) Measles Migraines (~1987) MRSA (methicillin resistant Staphylococcus aureus) Mumps Obesity (BMI 30-39.9) Osteoarthritis Ovarian mass Polyp of colon PTSD (post-traumatic stress disorder) Rubella Tinnitus Vision disorder Surgical History Anesthesia History of blepharoplasty (~2015) History of carpal tunnel repair (~2010) History of left salpingo-oophorectomy History of tonsillectomy Status post hysterectomy (~2000) [place] teeth extracted Family & Social History Family History Father Lung cancer Mother Atrial fibrillation Stroke Sister Lung cancer Sister Osteoporosis Bowel disease Grandfather Stroke Heart disease Grandmother Stroke Grandfather No problems noted. Social History: household members spouse Tobacco & Substance use: Smoking Status Never smoker alcohol intake current alcohol intake frequency holiday/special occasion Substance Use Type does not use Meds Home Medications and Allergies Home Medications Medication Instructions Recorded Confirmed Type calcium carb-vit D3-magnesium 250 1 cap PO DAILY 04/28/18 08/04/22 History mg-200 unit-125 mg capsule Massage Therapy #1 ea 06/19/19 07/14/22 Rx CBD oil 03/07/20 08/04/22 History biotin See Rx Instructions .Route .COMPLEX 04/16/22 08/04/22 History collagen (bovine) 6,000 mg PO DAILY 04/16/22 08/04/22 History glucos sul [id number] See Rx Instructions .Route .COMPLEX 04/16/22 08/04/22 History [Glucosamine Chondroitin] mecobalamin (vitamin B12) See Rx Instructions .Route .COMPLEX 04/16/22 08/04/22 History omega-3 fatty acids [Fish Oil] See Rx Instructions .Route .COMPLEX 04/16/22 08/04/22 History turmeric See Rx Instructions .Route .COMPLEX 04/16/22 08/04/22 History vitamin E mixed 400 unit capsule See Rx Instructions .Route .COMPLEX 04/16/22 08/04/22 History Beet Chew Total Beets See Rx Instructions .Route .COMPLEX 07/14/22 08/04/22 History albuterol sulfate 90 mcg/actuation 2 puff inhalation Q4-6H PRN 07/14/22 08/04/22 Rx aerosol inhaler shortness of breath or wheezing #1 g estradiol 0.0375 mg/24 hr See Rx Instructions .Route 07/14/22 08/04/22 Rx semiweekly transdermal patch .COMPLEX #24 ea (Latasha) hydrochlorothiazide 25 mg tablet See Rx Instructions .Route 07/14/22 08/04/22 Rx .COMPLEX #90 tabs dprxvpnw-zbfgomeid-mpncksjbk 3.5 4 drp otic (ear) BID 10 days #10 mL 07/14/22 08/04/22 Rx mg-10,000 unit/mL-1 % ear drops,susp sodium,potassium,mag sulfates 17.5 See Rx Instructions PO .COMPLEX 07/23/22 08/04/22 Rx gram-3.13 gram-1.6 gram oral soln #354 mL (Suprep Bowel Prep Kit) Allergies Allergy/AdvReac Type Severity Reaction Status Date / Time hornet venom Allergy Intermediate swelling Verified 08/04/22 09:12 Tetracyclines Allergy Intermediate Vomiting Verified 08/04/22 09:14 Penicillins [PENICILLINS] Allergy Unknown to young, Verified 08/04/22 09:12 doesn't remember doxycycline AdvReac Intermediate partial Verified 08/04/22 09:12 paralysis, Numbness, joint/muscle pain erythromycin base AdvReac Intermediate Vomiting Verified 08/04/22 09:12 adhesive AdvReac Mild Red, burn Verified 08/04/22 09:12 latex AdvReac Mild Unsure, Verified 08/04/22 09:12 poss irritation Exam Vital Signs (past 8 hours): - 08/04/22 09:29 Temperature 97.5 F L Pulse Rate 79 Respiratory Rate 18 Blood Pressure 126/80 Pulse Oximetry 96 Oxygen Delivery Method Room Air Oxygen Delivery Method Room Air Narrative Exam Narrative: General adult woman alert oriented no acute distress Abdomen soft nontender nondistended Objective Labs Result Diagrams: 08/04/22 08:32 08/04/22 08:32 Labs: Laboratory Results - last 24 hr 08/04/22 08/04/22 08/04/22 08:32 08:32 08:32 WBC 9.4 RBC 5.52 H Hgb 16.7 H Hct 48.0 H MCV 87.0 MCH 30.2 MCHC 34.7 RDW 12.7 Plt Count 228 Neut % (Auto) 64.9 Lymph % (Auto) 25.5 Rutherford % (Auto) 7.2 Eos % (Auto) 1.6 L Baso % (Auto) 0.8 Neut # (Auto) 6100 Lymph # (Auto) 2400 [place] # (Auto) 700 Eos # (Auto) 100 Baso # (Auto) 100 Sodium 137 Potassium 3.6 Chloride 100 Carbon Dioxide 28 BUN 15 Creatinine 0.64 Estimated GFR > 60 BUN/Creatinine Ratio 23.4 H Glucose 104 Calcium 9.1 Total Bilirubin 0.7 AST 32 ALT 29 Alkaline Phosphatase 59 Total Protein 8.3 H Albumin 4.7 Globulin 3.6 Albumin/Globulin Ratio 1.3 Triglycerides 176 H Cholesterol 242 H LDL Cholesterol, Calc 173 H HDL Cholesterol 34 L TSH 2.03 Free T4 1.05 Free T3 3.82 SARS-CoV-2 (PCR) 08/04/22 09:00 WBC RBC Hgb Hct MCV MCH MCHC RDW Plt Count Neut % (Auto) Lymph % (Auto) Rutherford % (Auto) Eos % (Auto) Baso % (Auto) Neut # (Auto) Lymph # (Auto) [place]ford # (Auto) Eos # (Auto) Baso # (Auto) Sodium Potassium Chloride Carbon Dioxide BUN Creatinine Estimated GFR BUN/Creatinine Ratio Glucose Calcium Total Bilirubin AST ALT Alkaline Phosphatase Total Protein Albumin Globulin Albumin/Globulin Ratio Triglycerides Cholesterol LDL Cholesterol, Calc HDL Cholesterol TSH Free T4 Free T3 SARS-CoV-2 (PCR) Negative Assessment & Plan Assessment & Plan narrative: The patient requires colorectal screening and colonoscopy is recommended. Technical details were discussed. Risks, benefits, alternatives explained. Risks including but not limited to myocardial infarction, aspiration, bleeding, pain, missed lesion, incomplete examination, need for further radiographic studies, colonic perforation, and need for major abdominal surgery were discussed. All questions were answered to their satisfaction, and they are in agreement with this plan. Time Spent With Patient Critical Care time: I spent a total of [] minutes of critical care time on this patient's care today; this time is exclusive of procedural time.
--- NOTE | 2022-08-04 10:14 | PM.OP.COLON ---
Operative Date/Time/Diagnoses Date of procedure: 08/04/22 Time of procedure: 10:15 Pre-op diagnosis: Personal history of colonic polyps Post-op diagnosis: same Procedure & Clinicians Study performed: Colonoscopy Same procedure as scheduled: Yes Indications: Personal history of colonic polyps Colorectal screening Surgeon: Sherman Alamo Procedure Notes Procedure in detail: The history and physical was performed/updated and the patient is ASA class is 2. The procedure was discussed in detail with the patient. Potential risks complications including infection, bleeding, missed diagnosis, perforation, need for surgery, and were explained. Their questions were answered and informed consent was obtained. Patient was brought to the procedure room and placed standard monitoring equipment. The patient's vital signs were monitored continuously throughout the entire procedure. Prior to starting time-out was performed. The patient was placed in the left lateral recumbent position. Procedural sedation was administered by anesthesia. Examination began with a thorough inspection of the perianal area there was no evidence of fissures, fistulae, external hemorrhoids or cutaneous malignancy. The colonoscopy scope was then placed into the anal canal and was advanced to the cecum, which was identified by the ileocecal valve, the appendiceal orifice and the confluence of the taenia. The scope was then slowly withdrawn examining colon thoroughly in all directions, irrigating it of any residual stool. FINDINGS 1. Ascending colon-5 mm polyp removed with biopsy forceps 2. Left colon extensive diverticulosis The patient tolerated the procedure well. They will be discharged once criteria are met. The prep was of good/excellent quality. The withdrawl time was *10 minutes. Specimen(s): other (Ascending colonic polyp) Impression: Colonic polyp Diverticulosis Post-procedure Recommendations: High fiber diet Plan for aftercare: Follow-up dependent on pathology findings Disposition: same day surgery
[2022-08-04 10:43] LABS: Hep C Virus Ab w/Reflex Quant NEGATIVE s/c (NEGATIVE)
[2022-08-04 10:44] VITALS: BP 133/79; PULSE 100; RESP 16; TEMP 36.1
[2022-08-04 10:50] VITALS: BP 130/70; PULSE 103; RESP 16; O2SAT 98
[2022-08-04 10:55] VITALS: BP 126/78; PULSE 74; RESP 16; TEMP 36.8; O2SAT 98
[2022-08-04 11:04] VITALS: BP 125/84; PULSE 68; RESP 16; TEMP 36.8; O2SAT 98
== END 2022-08-04 11:15 | disposition home or self-care (01) ==
PROVIDERS: PCP Family Medicine; Referring Provider Surgery; Visit Provider Surgery
PROC: 0DJD8ZZ Inspection of Lower Intestinal Tract, Via Natural or Artificial Opening Endoscopic (ICD-10-PCS; CPT 45378; principal; 2022-08-04 09:45)
DX: Z12.11 Encounter for screening for malignant neoplasm of colon (principal); Z86.010 Personal history of colon polyps; E78.5 Hyperlipidemia, unspecified; I10 Essential (primary) hypertension; K57.30 Diverticulosis of large intestine without perforation or abscess without bleeding; Z20.822 Contact with and (suspected) exposure to COVID-19; D12.2 Benign neoplasm of ascending colon
CPT/HCPCS: 45380; 36415; 80053; 80061; 84439; 84443; 84481; 85025; 86803; 87635; C9803; J2704

== ENCOUNTER → 2022-08-05 12:09 | Outpatient (CLI) | payer MEDICARE, OTHER, SELFPAY | PROVIDERS: PCP Family Medicine; Referring Provider Nurse Practitioner; Visit Provider Nurse Practitioner | DX: Z13.820 Encounter for screening for osteoporosis (principal); Z78.0 Asymptomatic menopausal state; Z92.23 Personal history of estrogen therapy; Z90.710 Acquired absence of both cervix and uterus | CPT/HCPCS: 77080 ==

== ENCOUNTER → 2023-03-23 13:12 | Outpatient (CLI) | payer MEDICARE, OTHER, SELFPAY ==
--- NOTE | 2023-03-23 12:45 | DI.US.S_ITS ---
PROCEDURE: US ABDOMEN LIMITED INDICATIONS: PALPABLE LUMP LOWER ABDOMINAL MONS PUBIS AREA ?ABSCESS TECHNIQUE: Real-time focused scanning was performed of the abdomen, with image documentation. COMPARISON: [facility], , US ABDOMEN LIMITED, 07/10/2019, 10:57. FINDINGS: Sonographic images of the mons pubis demonstrates irregular focus of decreased echogenicity measuring approximately 3.1 x 2.1 x 0.5 cm in the subcutaneous fat. Mild increased vascularity is present. IMPRESSION: Subcutaneous edema with focal hypo echogenicity possibly related to abscess/infection. Under clinical circumstances, hematoma cannot be excluded recommend correlation to potential trauma. Dictated by: Karlene Velarde M.D. on 03/23/2023 at 14:10 Approved by: Karlene Velarde M.D. on 03/23/2023 at 14:11
== END ==
PROVIDERS: PCP Family Medicine; Referring Provider Family Medicine; Visit Provider Family Medicine
DX: L02.91 Cutaneous abscess, unspecified (principal)
CPT/HCPCS: 76705

== ENCOUNTER → 2023-03-23 | Outpatient (CLI) | payer MEDICARE, OTHER, SELFPAY | PROVIDERS: PCP Family Medicine; Referring Provider Family Medicine; Visit Provider Family Medicine | DX: L02.91 Cutaneous abscess, unspecified (principal) | CPT/HCPCS: 76705 ==

== ENCOUNTER → 2023-09-28 10:45 | Outpatient (CLI) | payer MEDICARE, OTHER, SELFPAY ==
[2023-09-28 11:53] LABS: Hematocrit 46.1 % (36-46); Hemoglobin 16.2 g/dL (12.0-16.0); Mean Corpuscular HGB Conc 35.1 % (30-36); Mean Corpuscular Hemoglobin 30.3 PG (26-34); Mean Corpuscular Volume 86.3 fL (80-100); Platelet Count 209 X10^3/uL (150-400); Red Blood Cell Count 5.33 X10^6/uL (4.0-5.2); Red Cell Distribution Width 12.9 % (11.6-14.8); White Blood Cell Count 7.5 X10^3/uL (4.5-11.0)
[2023-09-28 11:54] LABS: Hemoglobin A1C% w Est Avg Glu 5.2 % (4.0-6.0)
[2023-09-28 12:18] LABS: Alanine Aminotransferase 30 IU/L (<35); Albumin 4.4 g/dL (3.5-5.0); Albumin Globulin Ratio 1.4 (1.0-2.8); Alkaline Phosphatase 68 U/L (38-126); Aspartate Aminotransferase 30 IU/L (14-36); BUN Creatinine Ratio 20.3 (6-22); Bilirubin Total 0.5 mg/dL (0.2-1.3); Blood Urea Nitrogen 13 mg/dL (7-17); Calcium 9.9 mg/dL (8.4-10.2); Carbon Dioxide 28 mmol/L (22-32); Chloride 102 mmol/L (98-107); Cholesterol 186 mg/dL (140-199); Estimated Glomerular Filt Rate > 60 mL/min (>60); Globulin 3.1 g/dL (1.7-4.1); Glucose 100 mg/dL (80-110); HDL Cholesterol 37 mg/dL (40-60); HEMOLYSIS < 15 (0-50); LDL Cholesterol Calculated 113 mg/dL (<100); Sodium 138 mmol/L (137-145); Total Protein 7.5 g/dL (6.3-8.2); Triglycerides 181 mg/dL (35-150)
[2023-09-28 12:24] LABS: High Sensitivity CRP - Cardiac 0.4 mg/L (1.0-3.0)
[2023-09-28 12:47] LABS: TSH w/ Reflex to FT4 0.16 uIU/mL (0.47-4.68)
[2023-09-28 13:26] LABS: Free T4, Direct Thyroxine 0.91 ng/dL (0.78-2.19)
== END ==
PROVIDERS: PCP Family Medicine; Referring Provider Family Medicine; Visit Provider Family Medicine
DX: D75.1 Secondary polycythemia (principal); I10 Essential (primary) hypertension; E78.5 Hyperlipidemia, unspecified; R53.83 Other fatigue; E66.9 Obesity, unspecified; Z13.1 Encounter for screening for diabetes mellitus; Z79.899 Other long term (current) drug therapy
CPT/HCPCS: 36415; 80053; 80061; 83036; 84439; 84443; 85027; 86140

== ENCOUNTER → 2023-12-09 16:33 | Outpatient (CLI) | payer MEDICARE, OTHER, SELFPAY ==
--- NOTE | 2023-12-09 16:34 | DI.US.S_ITS ---
PROCEDURE: US THYROID INDICATIONS: hyperthyroidism TECHNIQUE: Real-time scanning was performed of the thyroid gland, with image documentation. COMPARISON: None. FINDINGS: Thyroid: Right lobe measures 4.0 x 1.4 x 1.5 cm. Left lobe measures 2.9 x 1.4 x 1.1 cm. Isthmus is 0.4 cm thick. Echotexture is homogeneous. There are no suspicious adjacent lymph nodes. IMPRESSION: Normal thyroid gland. ACR TI-RADS definitions and recommendations: TI-RADS 1 (benign): 0 points. FNA not needed. TI-RADS 2 (not suspicious): 2 points. FNA not needed. TI-RADS 3 (mildly suspicious): 3 points. * FNA if 2.5 cm or larger, follow up if 1.5 cm or larger (at 1, 3, and 5 years). TI-RADS 4 (moderately suspicious): 4-6 points. * FNA if 1.5 cm or larger, follow up if 1 cm or larger (at 1, 2, 3, and 5 years). TI-RADS 5 (highly suspicious): 7 points or more. * FNA if 1 cm or larger, follow up if 0.5 cm or larger (every year for 5 years). Dictated by: Sandra Grullon M.D. on 12/10/2023 at 9:35 Approved by: Sandra Grullon M.D. on 12/10/2023 at 9:38
== END ==
PROVIDERS: PCP Family Medicine; Referring Provider Family Medicine; Visit Provider Family Medicine
DX: E05.90 Thyrotoxicosis, unspecified without thyrotoxic crisis or storm (principal)
CPT/HCPCS: 76536

== ENCOUNTER → 2024-08-18 09:54 | Outpatient (CLI) | payer MEDICARE, OTHER, SELFPAY ==
[2024-08-18 11:14] LABS: Add Manual Diff / Slide Review NO; Basophils Absolute Auto 100 /uL (0-100); Basophils Percent Auto 0.8 % (0-2); Eosinophils Absolute Auto 200 /uL (0-450); Eosinophils Percent Auto 2.1 % (2-4); Hematocrit 45.1 % (36-46); Hemoglobin 15.7 g/dL (12.0-16.0); Lymphocytes Absolute Auto 2200 /uL (1100-4500); Lymphocytes Percent Auto 28.6 % (25-40); Mean Corpuscular HGB Conc 34.9 % (30-36); Mean Corpuscular Hemoglobin 30.6 PG (26-34); Mean Corpuscular Volume 87.7 fL (80-100); Monocytes Absolute Auto 700 /uL (0-900); Monocytes Percent Auto 9.3 % (3-14); Neutrophils Absolute Auto 4500 /uL (1500-7000); Neutrophils Percent Auto 59.2 % (50-75); Platelet Count 225 X10^3/uL (150-400); Red Blood Cell Count 5.14 X10^6/uL (4.0-5.2); Red Cell Distribution Width 13.2 % (11.6-14.8); White Blood Cell Count 7.6 X10^3/uL (4.5-11.0)
[2024-08-18 11:24] LABS: Hemoglobin A1C% w Est Avg Glu 5.1 % (4.0-6.0)
[2024-08-18 12:05] LABS: Alanine Aminotransferase 26 IU/L (<35); Albumin 4.7 g/dL (3.5-5.0); Albumin Globulin Ratio 1.7 (1.0-2.8); Alkaline Phosphatase 60 U/L (38-126); Aspartate Aminotransferase 31 IU/L (14-36); BUN Creatinine Ratio 25.7 (6-22); Bilirubin Total 0.4 mg/dL (0.2-1.3); Blood Urea Nitrogen 18 mg/dL (7-17); Calcium 9.9 mg/dL (8.4-10.2); Carbon Dioxide 27 mmol/L (22-32); Chloride 101 mmol/L (98-107); Cholesterol 229 mg/dL (140-199); Estimated Glomerular Filt Rate > 60 mL/min (>60); Globulin 2.7 g/dL (1.7-4.1); Glucose 84 mg/dL (80-110); HDL Cholesterol 39 mg/dL (40-60); HEMOLYSIS < 15 (0-50); LDL Cholesterol Calculated 143 mg/dL (<100); Potassium 4.2 mmol/L (3.4-5.1); Sodium 136 mmol/L (137-145); Total Protein 7.4 g/dL (6.3-8.2); Triglycerides 234 mg/dL (35-150)
[2024-08-18 12:34] LABS: TSH w/ Reflex to FT4 1.66 uIU/mL (0.47-4.68); Thyroid Stimulating Hormone 1.66 uIU/mL (0.47-4.68)
[2024-08-19 04:38] LABS: CRP, High Sensitivity 0.75 mg/L (0.00-3.00)
== END ==
PROVIDERS: PCP Family Medicine; Referring Provider Family Medicine; Visit Provider Family Medicine
DX: Z00.00 Encounter for general adult medical examination without abnormal findings (principal); E05.90 Thyrotoxicosis, unspecified without thyrotoxic crisis or storm; R73.01 Impaired fasting glucose; E88.810 Metabolic syndrome; E66.9 Obesity, unspecified; E78.5 Hyperlipidemia, unspecified; D75.1 Secondary polycythemia; I10 Essential (primary) hypertension
CPT/HCPCS: 36415; 80053; 80061; 83036; 84439; 84443; 85025; 86140

== ENCOUNTER → 2025-03-01 10:30 | Outpatient (CLI) | payer MEDICARE, OTHER, SELFPAY ==
[2025-03-01 11:15] LABS: Alanine Aminotransferase 26 IU/L (<35); Albumin 4.8 g/dL (3.5-5.0); Albumin Globulin Ratio 1.5 (1.0-2.8); Alkaline Phosphatase 66 U/L (38-126); Blood Urea Nitrogen 14 mg/dL (7-17); Calcium 9.8 mg/dL (8.4-10.2); Carbon Dioxide 31 mmol/L (22-32); Chloride 98 mmol/L (98-107); Cholesterol 220 mg/dL (140-199); Estimated Glomerular Filt Rate > 60 mL/min (>60); Globulin 3.2 g/dL (1.7-4.1); Glucose 96 mg/dL (70-99); HDL Cholesterol 37 mg/dL (40-60); HEMOLYSIS < 15 (0-50); Potassium 4.1 mmol/L (3.4-5.1); Sodium 138 mmol/L (137-145); Total Protein 8.0 g/dL (6.3-8.2); Triglycerides 159 mg/dL (35-150)
[2025-03-02 08:09] LABS: CRP, High Sensitivity 3.96 mg/L (0.00-3.00)
== END ==
PROVIDERS: PCP Family Medicine; Referring Provider Family Medicine; Visit Provider Family Medicine
DX: I10 Essential (primary) hypertension (principal); E78.5 Hyperlipidemia, unspecified
CPT/HCPCS: 36415; 80053; 80061; 86140